=== PATIENT | male | born 1970 | race Two or more races ===

== ENCOUNTER 2018-09-12 16:43 | Emergency (ER) | payer SELFPAY ==
[~2018-09-12] VITALS: Ht 165.1 cm; Wt 90.7 kg
[2018-09-12 18:42] VITALS: BP 163/91
[2018-09-12] MEDS ORDERED: TETANUS-DIPTH-ACEL PERTUSSIS 0.5ML SYRG IM ONE (19:15)
[2018-09-12] MEDS ORDERED: cefTRIAXone SOD 1,000 MG VL IM ONE (19:30)
== END 2018-09-12 20:51 | disposition home or self-care (01) ==
LOC: ER 16:47
DX: S51.812A Laceration without foreign body of left forearm, initial encounter (principal); W54.0XXA Bitten by dog, initial encounter; Y93.89 Activity, other specified; Y99.8 Other external cause status; Y92.89 Other specified places as the place of occurrence of the external cause
CPT/HCPCS: 12002; 73090; 90471; 90715; 96372; 99284; J0696

== ENCOUNTER 2018-09-14 15:08 | Emergency (ER) | payer MEDICAID, OTHER ==
[~2018-09-14] VITALS: Ht 165.1 cm; Wt 90.7 kg
[2018-09-14 15:22] VITALS: BP 151/79
== END 2018-09-14 16:18 | disposition home or self-care (01) ==
LOC: ER 15:08
DX: S51.852D Open bite of left forearm, subsequent encounter (principal); J45.909 Unspecified asthma, uncomplicated; I10 Essential (primary) hypertension; W54.0XXD Bitten by dog, subsequent encounter

== ENCOUNTER 2018-09-26 14:14 | Emergency (ER) | payer MEDICAID ==
[~2018-09-26] VITALS: Ht 165.1 cm; Wt 90.7 kg
[2018-09-26 17:39] VITALS: BP 174/93
== END 2018-09-26 18:07 | disposition home or self-care (01) ==
LOC: ER 14:17
DX: S51.812D Laceration without foreign body of left forearm, subsequent encounter (principal); J45.909 Unspecified asthma, uncomplicated; I10 Essential (primary) hypertension; X58.XXXD Exposure to other specified factors, subsequent encounter

== ENCOUNTER 2018-09-27 12:55 | Emergency (ER) | payer MEDICAID ==
[~2018-09-27] VITALS: Ht 165.1 cm; Wt 90.7 kg
[2018-09-27 14:11] LABS: Basophils # (auto) 0 uL; Basophils % (auto) 0.4 % (0.0-2.0); Eosinophils # (auto) 0 uL; Eosinophils % (auto) 0.3 % (0.0-7.0); Hematocrit 48.6 % (41.0-53.0); Hemoglobin 16.7 g/dL (13.5-17.5); Lymphocytes % (auto) 11.6 % (10.0-50.0); Mean Corpuscular Hgb Conc. 34.4 g/dL (32.0-36.0); Mean Corpuscular Volume 90.2 fL (80.0-100.0); Monocytes # (auto) 0.5 uL; Monocytes % (auto) 5.6 % (0.0-12.0); Neutrophils # (auto) 7.3 uL; Neutrophils % (auto) 82.1 % (37.0-80.0); Platelet Count (auto) 224 10^3/uL (140-450); Red Blood Cells 5.39 10^6/uL (4.5-5.90); Red Cell Distribution Width 13.5 % (11.8-14.3); White Blood Cell 8.9 10^3/uL (4.4-10.8)
[2018-09-27 14:28] LABS: Anion Gap 9 (5-15); Blood Urea Nitrogen 13 mg/dL (7-18); Calcium 8.7 mg/dL (8.5-10.1); Carbon Dioxide 23 mmol/L (21-32); Chloride 104 mmol/L (98-107); Glucose 126 mg/dL (74-106); Potassium 3.7 mmol/L (3.5-5.1); Sodium 136 mmol/L (136-145)
[2018-09-27 14:31] LABS: Alanine Aminotransferase 29 U/L (16-61); Aspartate Aminotransferase 21 U/L (15-37); Bilirubin, Total 0.4 mg/dL (0.2-1.0); GFR African American 111 mL/min; GFR Non-African American 92 mL/min; Total Protein 8.1 g/dL (6.4-8.2)
[2018-09-27 14:34] LABS: Alkaline Phosphatase 82 U/L (45-117)
[2018-09-27] MEDS ORDERED: IPRATROPIUM BROM 0.5 MG/2.5ML INH SOL NEB ONE (20:00)
[2018-09-27] MEDS ORDERED: ALBUTEROL SULF 2.5 MG/0.5ML(0.5%) NEB SOLN NEB ONE (20:00)
[2018-09-27 21:51] VITALS: BP 149/77
[2018-09-27 22:20] LABS: Partial Thromboplastin Time 26.3 sec (23.78-33.04); Prothrombin Time 10.7 sec (9.27-12.13)
== END 2018-09-27 22:56 | disposition home or self-care (01) ==
LOC: ER 12:55
DX: J45.909 Unspecified asthma, uncomplicated (principal); R00.2 Palpitations; F12.10 Cannabis abuse, uncomplicated
CPT/HCPCS: 36415; 71046; 80053; 83735; 83880; 84484; 85025; 85379; 85610; 85730; 93005; 94640; 94761; 99284; J7611; J7644

== ENCOUNTER → 2019-11-06 | Emergency (ER) | payer SELFPAY ==
[~2019-11-06] VITALS: Ht 165.1 cm; Wt 83.9 kg
[2019-11-06 19:27] LABS: Basophils # (auto) 0 10 ^3/uL (0-0.2); Basophils % (auto) 0.4 % (0.0-2.0); Eosinophils # (auto) 0 10 ^3/uL (0-0.8); Eosinophils % (auto) 0.5 % (0.0-7.0); Hematocrit 49.9 % (41.0-53.0); Lymphocytes # (auto) 1.3 10 ^3/uL (0.4-5.4); Lymphocytes % (auto) 14.9 % (10.0-50.0); Mean Corpuscular Hemoglobin 31.1 pg (28.0-32.0); Mean Corpuscular Hgb Conc. 34.1 g/dL (32.0-36.0); Mean Corpuscular Volume 90.9 fL (80.0-100.0); Monocytes # (auto) 0.6 10 ^3/uL (0-1.3); Monocytes % (auto) 6.9 % (0.0-12.0); Neutrophils # (auto) 6.9 10 ^3/uL (1.6-8.6); Neutrophils % (auto) 77.3 % (37.0-80.0); Nucleated Red Blood Cells % 0.1 %; Platelet Count (auto) 177 10^3/uL (140-450); Red Blood Cells 5.49 10^6/uL (4.5-5.90); Red Cell Distribution Width 13.4 % (11.8-14.3); White Blood Cell 8.9 10^3/uL (4.4-10.8)
[2019-11-06 19:41] LABS: Albumin 4.3 g/dL (3.4-5.0); Calcium 8.8 mg/dL (8.5-10.1); Potassium 4.3 mmol/L (3.5-5.1)
[2019-11-06 19:45] LABS: Bilirubin, Total 0.5 mg/dL (0.2-1.0); Total Protein 8.3 g/dL (6.4-8.2)
[2019-11-06 23:13] VITALS: BP 147/72
[2019-11-06 23:38] LABS: Urine Bacteria FEW /hpf (None Seen); Urine Blood TRACE /uL (Negative); Urine Mucus FEW (None Seen); Urine Specific Gravity 1.019 (1.001-1.035); Urine WBC 1 /hpf (0 - 3)
== END | disposition home or self-care (01) ==
LOC: ER 17:05
DX: R10.84 Generalized abdominal pain (principal); I10 Essential (primary) hypertension; J45.909 Unspecified asthma, uncomplicated
CPT/HCPCS: 36415; 74018; 80053; 81001; 82150; 83690; 85025